=== PATIENT | male | born 1965 | race Caucasian/White ===

== ENCOUNTER 2017-07-13 00:13 | Observation (INO) | END 2017-07-14 15:20 | disposition home or self-care (01) ==

== ENCOUNTER 2017-12-17 02:23 | Emergency (ER) | END 2017-12-17 05:18 | disposition home or self-care (01) ==

== ENCOUNTER 2017-12-26 14:34 | Emergency (ER) | END 2017-12-26 17:00 | disposition home or self-care (01) ==